=== PATIENT | female | born 1995 | race Caucasian/White ===

== ENCOUNTER 2018-04-28 12:51 | Emergency (ER) | payer OTHER ==
[~2018-04-28] VITALS: Ht 175.3 cm; Wt 77.1 kg
[2018-04-28 13:06] VITALS: Ht 175.3 cm; Wt 77.1 kg
[2018-04-28 15:52] VITALS: BP 126/73
== END 2018-04-28 15:52 | disposition home or self-care (01) ==
LOC: ED 12:51
DX: L60.0 Ingrowing nail (principal)
CPT/HCPCS: J2001

== ENCOUNTER 2018-04-30 10:04 | Emergency (ER) | payer OTHER ==
[~2018-04-30] VITALS: Ht 175.3 cm; Wt 77.6 kg
[2018-04-30 10:08] VITALS: BP 129/57; Ht 175.3 cm; Wt 77.6 kg
== END 2018-04-30 10:35 | disposition home or self-care (01) ==
LOC: ED 10:04
DX: L60.0 Ingrowing nail (principal)